=== PATIENT | female | born 1950 | race Caucasian/White ===

== ENCOUNTER 2020-10-03 17:05 | Inpatient (IN) | payer MEDICARE ==
[2020-10-03] MEDS ORDERED: hydrALAZINE 25 MG TAB PO PRN (20:28)
[2020-10-03] MEDS ORDERED: cloNIDine 0.1 MG TAB PO PRN (20:28)
[2020-10-03] MEDS: busPIRone HCl 5 MG TAB PO SCH (21:28)
[2020-10-03] MEDS: Famotidine 20 MG TAB PO SCH (21:28)
[2020-10-03] MEDS: Pramipexole Di-HCl 0.25 MG TAB PO SCH (21:29)
[2020-10-03] MEDS: Arformoterol 15 MCG/2 ML NEB NEB SCH (21:29)
[2020-10-03] MEDS ORDERED: Budesonide 0.5 MG/2 ML NEB ONE (21:34)
[2020-10-03] MEDS: Zolpidem Tartrate 5 MG TAB PO PRN (21:44)
[2020-10-03] MEDS: Budesonide 0.5 MG/2 ML NEB NEB SCH (21:56)
[2020-10-03] MEDS: Lorazepam 0.5 MG TAB PO PRN (21:56)
[2020-10-04] MEDS ORDERED: Levalbuterol HCl 0.63 MG/3 ML NEB ONE (02:05)
[2020-10-04] MEDS: Acetaminophen 325 MG TAB PO PRN ×2 (05:07→13:41)
[2020-10-04] MEDS ORDERED: Albuterol Sulfate 1.25 MG/3 ML NEB NEB PRN (05:25)
[2020-10-04] MEDS: predniSONE 10 MG TAB PO SCH (08:56)
[2020-10-04] MEDS: Multivit, Therapeutic 1 TAB PO SCH (08:56)
[2020-10-04] MEDS: busPIRone HCl 5 MG TAB PO SCH ×3 (08:57→20:39)
[2020-10-04] MEDS: Famotidine 20 MG TAB PO SCH ×2 (08:57→20:38)
[2020-10-04] MEDS: Arformoterol 15 MCG/2 ML NEB NEB SCH ×2 (08:57→20:37)
[2020-10-04] MEDS: Budesonide 0.5 MG/2 ML NEB NEB SCH ×2 (08:57→20:42)
[2020-10-04] MEDS: Aspirin Chewable 81 MG TAB PO SCH (08:57)
[2020-10-04] MEDS: Lorazepam 0.5 MG TAB PO PRN ×2 (12:07→17:52)
[2020-10-04] MEDS: Loperamide HCl 2 MG CAP PO SCH (17:52)
[2020-10-04] MEDS: Albuterol Sulfate 2.5 mg/3 ml Neb NEB PRN (18:31)
--- NOTE | 2020-10-04 20:13 | HP ---
PRIMARY CARE PHYSICIAN: Out of town. REASON FOR ADMISSION: For skilled rehabilitation at [facility] due to severe COPD with respiratory failure due to COPD exacerbation and physical deconditioning. HISTORY OF PRESENT ILLNESS: Ms. Bennett is a 70-year-old pleasant female with history of severe COPD, on home oxygen. The patient had presented to the emergency room on September 22, 2020, due to altered mental status. The patient was found on the floor in the home, lying on the ground. She was brought in by EMS. ABGs at that time showed pH of 7.09 and pCO2 of 186. Per records, the patient was seen several days prior to hospitalization at [facility] due to a fall, unclear diagnoses by family. Patient during admission was intubated and placed on a mechanical ventilator after failure of noninvasive positive pressure ventilation. The patient was subsequently admitted to the CCU and she was seen by ict business analyst, Dr. Redd. She was started on empiric antibiotic along with steroids and bronchodilators. CT of the chest was negative for pulmonary embolism and patient continued to be monitored. During hospitalization, patient also had a CAT scan of the cervical spine done which showed a nondisplaced hairline fracture involving the right side of the C2 vertebral body superior surface. She was evaluated by neurosurgeon, who recommended outpatient followup and no neurological intervention at the time of admission. The patient progressed slowly and on September 26, she was extubated and transferred back to the medical floor. Patient completed antibiotics and steroids were gradually tapered off. The patient was noted to be severely deconditioned and the decision was made to transfer the patient to skilled rehabilitation for physical therapy prior to the discharge back to her home. Upon evaluation of the patient today, she appeared very anxious. She was excited to be in facility, but she states she needs breathing treatment more often than she is currently having it. The patient also complaining of severe diarrhea, which she has had for the past 3 months. She says she has diarrhea about 50 times a day. In [place], stool studies were done and a C. difficile was negative. The patient was started on Imodium as needed. She had home medications of Namenda and Aricept, which was discontinued and they did not seem to make a difference and family thought this was possibly the cause of patient's diarrhea. PAST MEDICAL HISTORY: Hypertension; COPD, on home oxygen; anxiety; dementia. PAST SURGICAL HISTORY: Tubal ligation, bronchoscopy, hemorrhoid surgery, and cauterization for epistaxis. FAMILY HISTORY: Both her parents were . Negative for coronary artery disease in her family SOCIAL HISTORY: Patient smokes up to 1 pack of cigarettes a day. Denies any alcohol or illicit drug use. Patient lives by herself in her home. CODE STATUS: The patient is a full code. REVIEW OF SYSTEMS: The following complete review of systems was negative otherwise mentioned in H and P or below. CONSTITUTIONAL: Weight loss or gain. EYES: Double vision or pain. SKIN: Rash or itching. Nosebleed or neck stiffness. ENT: Pain or tenderness. CARDIOVASCULAR: Palpitation, dyspnea on exertion, or orthopnea. RESPIRATORY: Patient complains of shortness of breath, wheezing, cough. GASTROINTESTINAL: Patient complains of diarrhea. Denies abdominal pain, nausea, vomiting. GENITOURINARY: Denies urgency, frequency, dysuria, or hematuria. MUSCULOSKELETAL: Denies pain or swelling. NEUROLOGICAL: Denies any seizure-like activity. PSYCHIATRY: Patient complains of anxiety. MEDICATIONS: 1. Aspirin 81 mg p.o. 2. Prednisone 10 mg daily. 3. Multivitamin one tab daily. 4. Pramipexole 0.5 mg at bedtime. 5. Ativan 0.5 mg q.6 p.r.n. 6. Hydralazine 25 mg t.i.d. p.r.n. SBP greater than 170. 7. Clonidine 0.1 mg p.o. t.i.d. p.r.n. hypertension. 8. BuSpar 5 mg t.i.d. scheduled. 9. Budesonide 0.5 mg b.i.d. 10. Ambien 10 mg p.o. at bedtime. 11. Pepcid 20 mg b.i.d. 12. Tylenol 650 q.4 hours p.r.n. 13. Pulmicort 0.5 b.i.d. nebulizer. 14. Brovana 15 mcg neb b.i.d. 15. Ventolin 2.5 mg neb q.6 p.r.n. 16. Belsomra one tab daily p.m. PHYSICAL EXAMINATION: VITAL SIGNS: Temperature 97.4, pulse 107, respirations 20, O2 saturation 93% on 2 L nasal cannula, blood pressure 179/73. GENERAL: The patient is alert, awake, and oriented x3. Sitting comfortably in bed, no apparent distress. HEART: Regular rate and rhythm. No murmurs. RESPIRATORY: No wheezing, no rales, no rhonchi. Increased work of breathing with COPD, but this is chronic. ABDOMEN: Positive bowel sounds. Soft, nontender, nondistended. EXTREMITIES: No cyanosis, clubbing, or edema. PSYCHIATRY: Normal affect. NEUROLOGICAL: Cranial nerves 2 through 12 grossly intact. SKIN: No rashes. ASSESSMENT: 1. Physical deconditioning. 2. Acute on chronic hypoxic/hypercapnic respiratory failure due to chronic obstructive pulmonary disease exacerbation. 3. Nondisplaced cervical fracture. 4. Anxiety. 5. Recurrent falls. 6. Hypertension. 7. Chronic anemia. 8. Mild dementia. PLAN: The patient is a 70-year-old female, being admitted to [facility]. We will consult Physical Therapy and Occupational Therapy to help with gait, balance, strengthening, and ambulation. We will consult Occupational Therapy to help with activities of daily living prior to discharge back to her home. We will start patient back on all her home medications. We will monitor the patient closely for any hemodynamic instabilities. We will place the patient on Imodium as needed for chronic diarrhea. We will help the patient make followup appointments with neurosurgeon upon discharge and ict business analyst upon discharge. ESTIMATED LENGTH OF STAY: Going to be 2 to 3 weeks. DISPOSITION: Back to her home. TIME SPENT: Timed used to prepare this H and P is greater than 40 minutes. Job ID: [id number]
[2020-10-04] MEDS: Pramipexole Di-HCl 0.25 MG TAB PO SCH (20:40)
[2020-10-04] MEDS ORDERED: SUVOREXANT 10 MG PO SCH (21:00)
[2020-10-04] MEDS ORDERED: Non-Formulary Item 1 EACH (Revefenacin [Yupelri] 175 MCG/3 ML Vial.Neb) IH SCH (21:00)
[2020-10-04] MEDS: Zolpidem Tartrate 5 MG TAB PO PRN (21:23)
[2020-10-05] MEDS: Loperamide HCl 2 MG CAP PO SCH ×2 (00:06→05:48)
[2020-10-05] MEDS: Lorazepam 0.5 MG TAB PO PRN ×3 (00:52→15:18)
[2020-10-05] MEDS: Albuterol Sulfate 2.5 mg/3 ml Neb NEB PRN ×2 (04:46→18:21)
[2020-10-05] MEDS: Acetaminophen 325 MG TAB PO PRN (05:51)
[2020-10-05] MEDS: Budesonide 0.5 MG/2 ML NEB NEB SCH ×2 (09:13→21:16)
[2020-10-05] MEDS: Arformoterol 15 MCG/2 ML NEB NEB SCH ×2 (09:13→21:15)
[2020-10-05] MEDS: Famotidine 20 MG TAB PO SCH ×2 (09:14→21:15)
[2020-10-05] MEDS: Aspirin Chewable 81 MG TAB PO SCH (09:14)
[2020-10-05] MEDS: busPIRone HCl 5 MG TAB PO SCH ×3 (09:14→21:15)
[2020-10-05] MEDS: Multivit, Therapeutic 1 TAB PO SCH (09:14)
[2020-10-05] MEDS: predniSONE 10 MG TAB PO SCH (09:14)
[2020-10-05] MEDS: Zolpidem Tartrate 5 MG TAB PO PRN (21:14)
[2020-10-05] MEDS: Pramipexole Di-HCl 0.25 MG TAB PO SCH (21:14)
[2020-10-05] MEDS: Loperamide HCl 2 MG CAP PO PRN (21:17)
[2020-10-06] MEDS: Albuterol Sulfate 2.5 mg/3 ml Neb NEB PRN ×3 (01:52→17:53)
[2020-10-06] MEDS: Lorazepam 0.5 MG TAB PO PRN ×2 (07:56→17:52)
[2020-10-06] MEDS: Famotidine 20 MG TAB PO SCH ×2 (07:57→20:24)
[2020-10-06] MEDS: Aspirin Chewable 81 MG TAB PO SCH (07:57)
[2020-10-06] MEDS: predniSONE 10 MG TAB PO SCH (07:57)
[2020-10-06] MEDS: Budesonide 0.5 MG/2 ML NEB NEB SCH ×2 (07:57→20:29)
[2020-10-06] MEDS: busPIRone HCl 5 MG TAB PO SCH ×3 (07:57→20:24)
[2020-10-06] MEDS: Multivit, Therapeutic 1 TAB PO SCH (07:57)
[2020-10-06] MEDS: Acetaminophen 325 MG TAB PO PRN (08:00)
[2020-10-06] MEDS: Arformoterol 15 MCG/2 ML NEB NEB SCH ×2 (08:29→20:23)
[2020-10-06] MEDS: Loperamide HCl 2 MG CAP PO PRN (10:50)
[2020-10-06] MEDS: Pramipexole Di-HCl 0.25 MG TAB PO SCH (20:23)
[2020-10-06] MEDS: Zolpidem Tartrate 5 MG TAB PO PRN (20:29)
[2020-10-07] MEDS: Lorazepam 0.5 MG TAB PO PRN ×3 (00:03→14:30)
[2020-10-07] MEDS: Albuterol Sulfate 2.5 mg/3 ml Neb NEB PRN ×2 (00:05→13:03)
[2020-10-07] MEDS: busPIRone HCl 5 MG TAB PO SCH ×3 (08:06→20:47)
[2020-10-07] MEDS: Aspirin Chewable 81 MG TAB PO SCH (08:06)
[2020-10-07] MEDS: Multivit, Therapeutic 1 TAB PO SCH (08:06)
[2020-10-07] MEDS: predniSONE 10 MG TAB PO SCH (08:06)
[2020-10-07] MEDS: Arformoterol 15 MCG/2 ML NEB NEB SCH ×2 (08:07→20:46)
[2020-10-07] MEDS: Budesonide 0.5 MG/2 ML NEB NEB SCH ×2 (08:09→20:46)
[2020-10-07] MEDS: Famotidine 20 MG TAB PO SCH ×2 (08:09→20:48)
[2020-10-07] MEDS: Pramipexole Di-HCl 0.25 MG TAB PO SCH (20:48)
[2020-10-07] MEDS: Zolpidem Tartrate 5 MG TAB PO PRN (20:48)
[2020-10-08] MEDS: Ondansetron ODT 4 MG TAB PO PRN ×2 (00:19→18:36)
[2020-10-08] MEDS: Albuterol Sulfate 2.5 mg/3 ml Neb NEB PRN ×2 (03:04→14:52)
[2020-10-08] MEDS: Acetaminophen 325 MG TAB PO PRN ×3 (03:05→21:49)
[2020-10-08] MEDS: Lorazepam 0.5 MG TAB PO PRN ×2 (03:05→12:24)
[2020-10-08] MEDS: Budesonide 0.5 MG/2 ML NEB NEB SCH ×2 (07:51→20:12)
[2020-10-08] MEDS: Aspirin Chewable 81 MG TAB PO SCH (07:51)
[2020-10-08] MEDS: Multivit, Therapeutic 1 TAB PO SCH (07:51)
[2020-10-08] MEDS: Arformoterol 15 MCG/2 ML NEB NEB SCH ×2 (07:51→20:12)
[2020-10-08] MEDS: predniSONE 10 MG TAB PO SCH (07:51)
[2020-10-08] MEDS: Famotidine 20 MG TAB PO SCH ×2 (07:51→20:19)
[2020-10-08] MEDS: busPIRone HCl 5 MG TAB PO SCH ×3 (07:51→20:07)
[2020-10-08] MEDS: Zolpidem Tartrate 5 MG TAB PO PRN (20:07)
[2020-10-08] MEDS: Pramipexole Di-HCl 0.25 MG TAB PO SCH (20:08)
[2020-10-09] MEDS: Albuterol Sulfate 2.5 mg/3 ml Neb NEB PRN ×3 (01:49→17:52)
[2020-10-09] MEDS: Lorazepam 0.5 MG TAB PO PRN ×3 (01:49→17:53)
[2020-10-09] MEDS: Acetaminophen 325 MG TAB PO PRN (05:48)
[2020-10-09] MEDS: Famotidine 20 MG TAB PO SCH ×2 (08:12→21:59)
[2020-10-09] MEDS: Budesonide 0.5 MG/2 ML NEB NEB SCH ×2 (08:12→21:58)
[2020-10-09] MEDS: Multivit, Therapeutic 1 TAB PO SCH (08:12)
[2020-10-09] MEDS: Aspirin Chewable 81 MG TAB PO SCH (08:12)
[2020-10-09] MEDS: predniSONE 10 MG TAB PO SCH (08:12)
[2020-10-09] MEDS: busPIRone HCl 5 MG TAB PO SCH ×3 (08:12→21:58)
[2020-10-09] MEDS: Arformoterol 15 MCG/2 ML NEB NEB SCH ×2 (08:12→21:57)
[2020-10-09] MEDS: Ondansetron ODT 4 MG TAB PO PRN ×2 (13:44→19:26)
[2020-10-09] MEDS: Pramipexole Di-HCl 0.25 MG TAB PO SCH (21:58)
[2020-10-09] MEDS: Zolpidem Tartrate 5 MG TAB PO PRN (21:59)
[2020-10-10] MEDS: Acetaminophen 325 MG TAB PO PRN (03:35)
[2020-10-10] MEDS: Famotidine 20 MG TAB PO SCH ×2 (08:39→21:46)
[2020-10-10] MEDS: Multivit, Therapeutic 1 TAB PO SCH (08:39)
[2020-10-10] MEDS: Budesonide 0.5 MG/2 ML NEB NEB SCH ×2 (08:39→21:46)
[2020-10-10] MEDS: Arformoterol 15 MCG/2 ML NEB NEB SCH ×2 (08:39→21:46)
[2020-10-10] MEDS: busPIRone HCl 5 MG TAB PO SCH ×3 (08:39→21:46)
[2020-10-10] MEDS: Aspirin Chewable 81 MG TAB PO SCH (08:39)
[2020-10-10] MEDS: predniSONE 10 MG TAB PO SCH (08:39)
[2020-10-10] MEDS: Lorazepam 0.5 MG TAB PO PRN ×3 (08:39→21:45)
[2020-10-10] MEDS: Loperamide HCl 2 MG CAP PO PRN (11:52)
[2020-10-10] MEDS: Ondansetron ODT 4 MG TAB PO PRN (11:52)
[2020-10-10] MEDS: Dicyclomine 10 MG CAP PO SCH ×2 (19:06→21:47)
[2020-10-10] MEDS: Zolpidem Tartrate 5 MG TAB PO PRN (21:45)
[2020-10-10] MEDS: Pramipexole Di-HCl 0.25 MG TAB PO SCH (21:47)
[2020-10-11] MEDS: Lorazepam 0.5 MG TAB PO PRN ×3 (04:25→21:33)
[2020-10-11] MEDS: Albuterol Sulfate 2.5 mg/3 ml Neb NEB PRN ×2 (04:26→13:12)
[2020-10-11] MEDS: Multivit, Therapeutic 1 TAB PO SCH (08:47)
[2020-10-11] MEDS: Aspirin Chewable 81 MG TAB PO SCH (08:47)
[2020-10-11] MEDS: Dicyclomine 10 MG CAP PO SCH ×4 (08:47→21:29)
[2020-10-11] MEDS: predniSONE 10 MG TAB PO SCH (08:47)
[2020-10-11] MEDS: busPIRone HCl 5 MG TAB PO SCH ×3 (08:48→21:29)
[2020-10-11] MEDS: Budesonide 0.5 MG/2 ML NEB NEB SCH ×2 (08:48→21:30)
[2020-10-11] MEDS: Arformoterol 15 MCG/2 ML NEB NEB SCH ×2 (08:48→21:29)
[2020-10-11] MEDS: Famotidine 20 MG TAB PO SCH ×2 (08:48→21:29)
--- NOTE | 2020-10-11 09:20 | RAD ---
Exam: 2 views cervical spine HISTORY: Surgery 3 weeks ago. Cervical radiculopathy. COMPARISON: None Correlation: Cervical spine CT 09/22/2020 FINDINGS: There is no prevertebral soft tissue swelling. Vertebral body heights are maintained. No ra diographic evidence of fracture. There is identified fracture by CT is not appreciated. Stable degenerative changes of the cervical spine. No malalignment. IMPRESSION: No radiographic evidence of fracture or malalignment.
[2020-10-11] MEDS: Loperamide HCl 2 MG CAP PO PRN (13:09)
[2020-10-11] MEDS: Pramipexole Di-HCl 0.25 MG TAB PO SCH (21:29)
[2020-10-11] MEDS: Zolpidem Tartrate 5 MG TAB PO PRN (21:32)
[2020-10-12] MEDS: Acetaminophen 325 MG TAB PO PRN (05:01)
[2020-10-12] MEDS: Lorazepam 0.5 MG TAB PO PRN ×2 (05:01→13:08)
[2020-10-12] MEDS: Albuterol Sulfate 2.5 mg/3 ml Neb NEB PRN (05:14)
[2020-10-12] MEDS: busPIRone HCl 5 MG TAB PO SCH ×3 (09:00→21:55)
[2020-10-12] MEDS: Aspirin Chewable 81 MG TAB PO SCH (09:00)
[2020-10-12] MEDS: predniSONE 10 MG TAB PO SCH (09:00)
[2020-10-12] MEDS: Multivit, Therapeutic 1 TAB PO SCH (09:01)
[2020-10-12] MEDS: Arformoterol 15 MCG/2 ML NEB NEB SCH ×2 (09:01→21:45)
[2020-10-12] MEDS: Budesonide 0.5 MG/2 ML NEB NEB SCH ×2 (09:01→21:55)
[2020-10-12] MEDS: Dicyclomine 10 MG CAP PO SCH ×4 (09:01→21:55)
[2020-10-12] MEDS: Famotidine 20 MG TAB PO SCH ×2 (09:02→21:55)
[2020-10-12] MEDS: Pramipexole Di-HCl 0.25 MG TAB PO SCH (21:55)
[2020-10-12] MEDS: Temazepam 15 MG CAP PO PRN (21:58)
[2020-10-13] MEDS: Acetaminophen 325 MG TAB PO PRN (03:18)
[2020-10-13] MEDS: Albuterol Sulfate 2.5 mg/3 ml Neb NEB PRN ×2 (07:37→14:40)
[2020-10-13] MEDS: Budesonide 0.5 MG/2 ML NEB NEB SCH ×2 (07:56→20:00)
[2020-10-13] MEDS: busPIRone HCl 5 MG TAB PO SCH ×3 (07:57→19:59)
[2020-10-13] MEDS: Dicyclomine 10 MG CAP PO SCH ×4 (07:57→20:00)
[2020-10-13] MEDS: predniSONE 10 MG TAB PO SCH (07:57)
[2020-10-13] MEDS: Aspirin Chewable 81 MG TAB PO SCH (07:57)
[2020-10-13] MEDS: Arformoterol 15 MCG/2 ML NEB NEB SCH ×2 (07:57→20:00)
[2020-10-13] MEDS: Famotidine 20 MG TAB PO SCH ×2 (07:57→20:00)
[2020-10-13] MEDS: Multivit, Therapeutic 1 TAB PO SCH (08:02)
[2020-10-13] MEDS: Loperamide HCl 2 MG CAP PO PRN (12:11)
[2020-10-13] MEDS: Lorazepam 0.5 MG TAB PO PRN ×2 (13:42→19:59)
[2020-10-13] MEDS: Pramipexole Di-HCl 0.25 MG TAB PO SCH (20:00)
[2020-10-13] MEDS: Temazepam 15 MG CAP PO PRN (20:00)
[2020-10-14] MEDS: Acetaminophen 325 MG TAB PO PRN (03:30)
[2020-10-14] MEDS: Lorazepam 0.5 MG TAB PO PRN ×3 (03:36→19:58)
[2020-10-14] MEDS: Albuterol Sulfate 2.5 mg/3 ml Neb NEB PRN ×2 (03:46→15:57)
[2020-10-14] MEDS: Budesonide 0.5 MG/2 ML NEB NEB SCH ×2 (08:52→19:59)
[2020-10-14] MEDS: Arformoterol 15 MCG/2 ML NEB NEB SCH ×2 (08:52→19:59)
[2020-10-14] MEDS: Multivit, Therapeutic 1 TAB PO SCH (08:52)
[2020-10-14] MEDS: Famotidine 20 MG TAB PO SCH ×2 (08:52→19:59)
[2020-10-14] MEDS: Dicyclomine 10 MG CAP PO SCH ×4 (08:53→19:59)
[2020-10-14] MEDS: Aspirin Chewable 81 MG TAB PO SCH (08:53)
[2020-10-14] MEDS: predniSONE 10 MG TAB PO SCH (08:53)
[2020-10-14] MEDS: busPIRone HCl 5 MG TAB PO SCH ×3 (08:53→19:59)
[2020-10-14] MEDS: Loperamide HCl 2 MG CAP PO PRN (12:14)
[2020-10-14] MEDS: Temazepam 15 MG CAP PO PRN (19:57)
[2020-10-14] MEDS: Pramipexole Di-HCl 0.25 MG TAB PO SCH (20:00)
[2020-10-15] MEDS: Lorazepam 0.5 MG TAB PO PRN ×3 (04:23→19:58)
[2020-10-15] MEDS: Acetaminophen 325 MG TAB PO PRN (04:23)
[2020-10-15] MEDS: Albuterol Sulfate 2.5 mg/3 ml Neb NEB PRN (04:23)
[2020-10-15] MEDS: Aspirin Chewable 81 MG TAB PO SCH (08:49)
[2020-10-15] MEDS: Famotidine 20 MG TAB PO SCH ×2 (08:49→19:59)
[2020-10-15] MEDS: predniSONE 10 MG TAB PO SCH (08:49)
[2020-10-15] MEDS: busPIRone HCl 5 MG TAB PO SCH ×3 (08:49→19:59)
[2020-10-15] MEDS: Dicyclomine 10 MG CAP PO SCH ×4 (08:49→20:00)
[2020-10-15] MEDS: Budesonide 0.5 MG/2 ML NEB NEB SCH ×2 (08:49→19:59)
[2020-10-15] MEDS: Arformoterol 15 MCG/2 ML NEB NEB SCH ×2 (08:49→19:59)
[2020-10-15] MEDS: Multivit, Therapeutic 1 TAB PO SCH (08:49)
[2020-10-15] MEDS: Loperamide HCl 2 MG CAP PO PRN ×2 (08:58→11:21)
[2020-10-15] MEDS: Temazepam 15 MG CAP PO PRN (19:58)
[2020-10-15] MEDS: Pramipexole Di-HCl 0.25 MG TAB PO SCH (20:00)
[2020-10-16] MEDS: Acetaminophen 325 MG TAB PO PRN ×2 (02:28→21:48)
[2020-10-16] MEDS: Albuterol Sulfate 2.5 mg/3 ml Neb NEB PRN ×2 (02:29→15:26)
[2020-10-16] MEDS: Lorazepam 0.5 MG TAB PO PRN ×2 (02:29→11:39)
[2020-10-16] MEDS: Arformoterol 15 MCG/2 ML NEB NEB SCH ×2 (07:49→21:46)
[2020-10-16] MEDS: Budesonide 0.5 MG/2 ML NEB NEB SCH ×2 (07:51→21:47)
[2020-10-16] MEDS: Aspirin Chewable 81 MG TAB PO SCH (07:53)
[2020-10-16] MEDS: Famotidine 20 MG TAB PO SCH ×2 (07:53→21:48)
[2020-10-16] MEDS: Multivit, Therapeutic 1 TAB PO SCH (07:54)
[2020-10-16] MEDS: predniSONE 10 MG TAB PO SCH (07:54)
[2020-10-16] MEDS: busPIRone HCl 5 MG TAB PO SCH ×3 (07:54→21:49)
[2020-10-16] MEDS: Dicyclomine 10 MG CAP PO SCH ×2 (07:54→13:18)
[2020-10-16 11:50] VITALS: BMI 24.8
[2020-10-16] MEDS: Loperamide HCl 2 MG CAP PO PRN (13:20)
[2020-10-16] MEDS: Temazepam 15 MG CAP PO PRN (21:48)
[2020-10-16] MEDS: Pramipexole Di-HCl 0.25 MG TAB PO SCH (21:49)
[2020-10-16] MEDS: Cholestyramine/Aspartame 4 gm Packet PO SCH (21:53)
[2020-10-17] MEDS: Lorazepam 0.5 MG TAB PO PRN ×4 (01:40→21:12)
[2020-10-17] MEDS: Acetaminophen 325 MG TAB PO PRN (05:52)
[2020-10-17] MEDS: Albuterol Sulfate 2.5 mg/3 ml Neb NEB PRN ×2 (06:14→14:47)
[2020-10-17] MEDS: Aspirin Chewable 81 MG TAB PO SCH (08:48)
[2020-10-17] MEDS: busPIRone HCl 5 MG TAB PO SCH ×3 (08:48→20:08)
[2020-10-17] MEDS: predniSONE 10 MG TAB PO SCH (08:48)
[2020-10-17] MEDS: Saccharomyces boulardii 250 MG CAP PO SCH (08:48)
[2020-10-17] MEDS: Famotidine 20 MG TAB PO SCH ×2 (08:48→20:08)
[2020-10-17] MEDS: Arformoterol 15 MCG/2 ML NEB NEB SCH ×2 (08:49→20:08)
[2020-10-17] MEDS: Multivit, Therapeutic 1 TAB PO SCH (08:49)
[2020-10-17] MEDS: Budesonide 0.5 MG/2 ML NEB NEB SCH ×2 (08:50→20:08)
[2020-10-17] MEDS: Cholestyramine/Aspartame 4 gm Packet PO SCH ×3 (10:21→21:13)
[2020-10-17] MEDS: Pramipexole Di-HCl 0.25 MG TAB PO SCH (20:08)
[2020-10-17] MEDS: Temazepam 15 MG CAP PO PRN (20:08)
[2020-10-18] MEDS: Lorazepam 0.5 MG TAB PO PRN ×3 (03:21→20:06)
[2020-10-18] MEDS: Albuterol Sulfate 2.5 mg/3 ml Neb NEB PRN ×2 (03:21→16:00)
[2020-10-18] MEDS: Aspirin Chewable 81 MG TAB PO SCH (09:00)
[2020-10-18] MEDS: predniSONE 10 MG TAB PO SCH (09:00)
[2020-10-18] MEDS: Budesonide 0.5 MG/2 ML NEB NEB SCH ×2 (09:00→20:07)
[2020-10-18] MEDS: Arformoterol 15 MCG/2 ML NEB NEB SCH ×2 (09:00→20:07)
[2020-10-18] MEDS: Cholestyramine/Aspartame 4 gm Packet PO SCH ×2 (09:00→21:51)
[2020-10-18] MEDS: Multivit, Therapeutic 1 TAB PO SCH (09:01)
[2020-10-18] MEDS: Famotidine 20 MG TAB PO SCH ×2 (09:01→20:07)
[2020-10-18] MEDS: Saccharomyces boulardii 250 MG CAP PO SCH (09:01)
[2020-10-18] MEDS: busPIRone HCl 5 MG TAB PO SCH ×3 (09:01→20:07)
[2020-10-18] MEDS: Temazepam 15 MG CAP PO PRN (20:06)
[2020-10-18] MEDS: Pramipexole Di-HCl 0.25 MG TAB PO SCH (20:07)
[2020-10-19] MEDS: Lorazepam 0.5 MG TAB PO PRN ×3 (02:07→15:35)
[2020-10-19] MEDS: Albuterol Sulfate 2.5 mg/3 ml Neb NEB PRN ×3 (02:07→18:22)
[2020-10-19] MEDS: Budesonide 0.5 MG/2 ML NEB NEB SCH ×2 (08:53→21:21)
[2020-10-19] MEDS: Arformoterol 15 MCG/2 ML NEB NEB SCH ×2 (08:53→21:21)
[2020-10-19] MEDS: Famotidine 20 MG TAB PO SCH ×2 (08:53→21:21)
[2020-10-19] MEDS: Saccharomyces boulardii 250 MG CAP PO SCH (08:53)
[2020-10-19] MEDS: Aspirin Chewable 81 MG TAB PO SCH (08:53)
[2020-10-19] MEDS: predniSONE 10 MG TAB PO SCH (08:54)
[2020-10-19] MEDS: Multivit, Therapeutic 1 TAB PO SCH (08:54)
[2020-10-19] MEDS: busPIRone HCl 5 MG TAB PO SCH ×3 (08:54→21:22)
[2020-10-19] MEDS: Cholestyramine/Aspartame 4 gm Packet PO SCH ×2 (10:00→21:54)
[2020-10-19] MEDS: Pramipexole Di-HCl 0.25 MG TAB PO SCH (21:21)
[2020-10-19] MEDS: Temazepam 15 MG CAP PO PRN (21:22)
[2020-10-20] MEDS: Albuterol Sulfate 2.5 mg/3 ml Neb NEB PRN (05:25)
[2020-10-20] MEDS: Acetaminophen 325 MG TAB PO PRN (05:47)
[2020-10-20] MEDS: Lorazepam 0.5 MG TAB PO PRN (05:47)
[2020-10-20 08:36] VITALS: BP 146/63; TEMP 97.8
[2020-10-20] MEDS: Budesonide 0.5 MG/2 ML NEB NEB SCH (08:50)
[2020-10-20] MEDS: busPIRone HCl 5 MG TAB PO SCH (08:50)
[2020-10-20] MEDS: predniSONE 10 MG TAB PO SCH (08:50)
[2020-10-20] MEDS: Multivit, Therapeutic 1 TAB PO SCH (08:50)
[2020-10-20] MEDS: Famotidine 20 MG TAB PO SCH (08:50)
[2020-10-20] MEDS: Aspirin Chewable 81 MG TAB PO SCH (08:50)
[2020-10-20] MEDS: Arformoterol 15 MCG/2 ML NEB NEB SCH (08:50)
[2020-10-20] MEDS: Saccharomyces boulardii 250 MG CAP PO SCH (08:50)
[2020-10-20] MEDS: Cholestyramine/Aspartame 4 gm Packet PO SCH (10:27)
--- NOTE | 2020-10-21 00:16 | DIS ---
DATE OF ADMISSION: 10/03/2020 DATE OF DISCHARGE: 10/20/2020 DISCHARGING PHYSICIAN: Chauncey Mustafa MD PRIMARY CARE PHYSICIAN: Out of town. DISCHARGE DISPOSITION: Back to her home with family. DISCHARGE INSTRUCTIONS: Home Health to resume PT services. Patient to ambulate with a walker at all times. Patient to follow up with PCP within 1 week. INFORMATION TO THE PATIENT: To follow up with neurosurgeon within 4 weeks. DISCHARGE MEDICATIONS: 1. Tylenol 650 q.4 p.r.n. 2. Albuterol Ventolin neb q.6 p.r.n. 3. Brovana nebs b.i.d. 4. Budesonide neb b.i.d. 5. BuSpar 5 mg t.i.d. 6. Cholestyramine Light 4 g p.o. b.i.d. 7. Clonidine 0.1 p.o. t.i.d. p.r.n. 8. Pepcid 20 mg b.i.d. 9. Imodium 2 mg p.o. p.r.n. 10. Ativan 0.5 mg q.6 p.r.n. 11. Multivitamin 1 tab daily. 12. Pramipexole 0.5 mg at bedtime. 13. Prednisone 10 mg daily. 14. Florastor 250 mg daily. 15. Restoril 15 mg p.o. at bedtime. CODE STATUS: The patient is a full code. FINAL DIAGNOSES: 1. Acute on chronic hypoxic/hypercapnic respiratory failure due to chronic obstructive pulmonary disease exacerbation, resolved. 2. Advanced chronic obstructive pulmonary disease. 3. Nondisplaced cervical fracture. The patient is to follow up with neurosurgeon in 4 weeks. 4. Chronic diarrhea, resolved. 5. Anxiety. 6. Hypertension. 7. Physical deconditioning. 8. Gait instability. 9. Recurrent falls. 10. Hypertension. BRIEF HOSPITAL COURSE: Ms. Bennett is a very pleasant 70-year-old female with a history of COPD on home oxygen, who presented to the emergency room due to altered mental status and family found her lying on the floor. Upon evaluation, her pH was 7.09 and pCO2 of 186. The patient was intubated and placed on mechanical ventilation after failure of noninvasive positive-pressure ventilation. She was admitted to the ICU under the care of batch dumper, Dr. Redd. The patient was started on empiric antibiotics and steroids, bronchodilators. She had CT of the chest which was negative. The patient had CT of the cervical spine due to the fall and was noted to have a nondisplaced hairline fracture. She was seen by the Neurological Service at the time of admission and recommended an outpatient followup and also patient to wear a neck brace. The patient progressively improved in ICU and was extubated and transferred back to the medical floor on September 26. The patient was able to complete antibiotic and steroids and she was slowly tapered off. The patient was noted to be severely deconditioned, so the decision was made to transfer to skilled rehabilitation prior to discharge back to her home. During hospitalization, the patient also notes she had chronic diarrhea, which was worked up and no acute findings were noted. The patient was subsequently transferred to [facility] for skilled rehabilitation. She progressively improved, but hospitalization was complicated by recurrence of the diarrhea. The patient was also noted to have anxiety. She was started on Ativan as needed which helped significantly and for insomnia, she was initially started on Ambien, which per patient worked, but later on patient said that medication was not helping any longer and she was changed to Vistaril, which she did say that it helped significantly. The patient's diarrhea continued to worsen. She was initially started on Bentyl which did not help. On October 16, she was started on Questran and Florastor and this was able to resolve the diarrhea. The patient was very happy about this and on day of discharge, the patient was able to ambulate with a rolling walker about 100 feet. The decision was made to discharge the patient home with family with [facility] who was previously working with the patient in the home. Estimated length of time used to coordinate this discharge and evaluate the patient was greater than 45 minutes. Job ID: [id number]
== END 2020-10-20 11:38 | disposition home or self-care (01) | DRG 189 ==
LOC: MADMS 17:05
PROVIDERS: ADMIT Family Medicine; ATTEND Family Medicine
DX: J96.21 Acute and chronic respiratory failure with hypoxia (principal); S12.100A Unspecified displaced fracture of second cervical vertebra, initial encounter for closed fracture; J44.1 Chronic obstructive pulmonary disease with (acute) exacerbation; R53.81 Other malaise; J96.22 Acute and chronic respiratory failure with hypercapnia; F41.9 Anxiety disorder, unspecified; R29.6 Repeated falls; I10 Essential (primary) hypertension; D64.9 Anemia, unspecified; F03.90 Unspecified dementia, unspecified severity, without behavioral disturbance, psychotic disturbance, mood disturbance, and anxiety; W18.30XA Fall on same level, unspecified, initial encounter; K52.9 Noninfective gastroenteritis and colitis, unspecified; R26.89 Other abnormalities of gait and mobility; G47.00 Insomnia, unspecified; F17.210 Nicotine dependence, cigarettes, uncomplicated; Z79.899 Other long term (current) drug therapy; Z79.82 Long term (current) use of aspirin; Z79.51 Long term (current) use of inhaled steroids; Z98.890 Other specified postprocedural states; Z98.51 Tubal ligation status; Z99.81 Dependence on supplemental oxygen
CPT/HCPCS: 72040; 94640; J7512; J7611; J7614; J7626; Q0162

== ENCOUNTER 2021-01-21 11:16 | Emergency (ER) | payer MEDICARE, OTHER | END 2021-01-21 14:32 | disposition E | LOC: MADERS 11:16 | DX: I46.9 Cardiac arrest, cause unspecified (principal); I10 Essential (primary) hypertension; J44.0 Chronic obstructive pulmonary disease with (acute) lower respiratory infection; J18.9 Pneumonia, unspecified organism; Z87.891 Personal history of nicotine dependence | CPT/HCPCS: 36416; 92950 ==